=== PATIENT | male | born 1995 | race Hispanic/Latino ===

== ENCOUNTER 2017-03-17 16:07 | Inpatient (IN) | payer MEDICARE, MEDICAID ==
[2017-03-17] MEDS ORDERED: Ondansetron HCl/PF 4 MG/2 ML Vial ONE ×2 (16:45→17:32)
[2017-03-17 17:01] LABS: Lactic Acid - Sepsis 9.1 mmol/L (0.5-2.2)
--- NOTE | 2017-03-17 17:22 | CT ---
HISTORY: Trauma, found shaking. NONCONTRAST ENHANCED CT IMAGES OF THE BRAIN 03/17/[address] images of the brain demonstrates small areas of subarachnoid hemorrhage along the subarachnoid space inferior and slightly anterior to the right and left frontal lobes. There may also be a small amount of hemorrhage along the anterior aspect of the right middle cranial fossa. Th is may be subarachnoid or may be subdural. Correlate with followup CT. There is also a nondisplaced f racture through the anterior aspect of the frontal bone extending through the anterior and posterior tables of the skull. There is also a nondisplaced left occipital bone fracture. IMPRESSION: 1. Right frontal and left occipital skull fractures. 2. Subarachnoid blood inferior to both frontal lobes. 3. Possible right middle cranial fossa area of hemorrhage which may represent subarachnoid versu s subdural blood in the right middle cranial fossa. Findings called to Dr. Roy at 4:49 p.m. on 03/17/17. Code CR POS: [facility]
--- NOTE | 2017-03-17 17:24 | CT ---
CT CERVICAL SPINE 03/17/17 HISTORY: Fall and seizure. Axial images are obtained with coronal and sagittal reconstructions. Motion artifact is seen in the images as the CT scanner was passing through the C2 level. No evidence of fractures, subluxations, or bony lesions seen. No evidence of subluxation seen. The ne ural foramen are patent. IMPRESSION: Normal CT cervical spine. POS: [facility]
[2017-03-17 17:25] LABS: Hematocrit 49.7 % (42.0-52.0); Mean Platelet Volume 8.6 fL (7.4-10.4); Red Blood Cell (RBC) Count 5.46 mill/uL (4.70-6.10); White Blood Cell (WBC) Count 13.5 thou/uL (4.8-10.8)
[2017-03-17 17:29] LABS: ALT (SGPT) 28 U/L (8-55); AST (SGOT) 23 U/L (5-34); Alkaline Phosphatase 103 U/L (40-150); Anion Gap 20 mmol/L (10-20); BUN (Urea Nitrogen) 10 mg/dL (8.9-20.6); Bilirubin, Total 0.8 mg/dL (0.2-1.2); Calc. Creatinine Clearance 0 mL/min (70-130); Calcium 9.9 mg/dL (7.8-10.44); Carbon Dioxide 17 mmol/L (22-29); Chloride 103 mmol/L (98-107); Estimated GFR-MDRD Greater than 90; Globulin 3.5 g/dL (2.4-3.5); Protein, Total 8.3 g/dL (6.0-8.3)
--- NOTE | 2017-03-17 17:50 | RAD ---
PORTABLE CHEST 03/17/17 HISTORY: Seizure. Lung marinelli are clear. Heart and mediastinum appear normal. Osseous structures appear intact. IMPRESSION: No acute finding. POS: [facility]
[2017-03-17 17:53] LABS: Band 2 % (5-11); Neutrophil 26 % (42-75); Reactive Lymphocytes 14 % (0-10)
[2017-03-17] MEDS ORDERED: levETIRAcetam In NaCl (Iso-Os) 1,000 MG in Premix Bag 1 BAG IVPB SCH ×2 (18:15)
[2017-03-17 18:36] LABS: Acetaminophen Less than 6.0 mcg/mL (10.0-30.0); Salicylate Less than 8.0 mg/dL (15.0-30.0)
[2017-03-17] MEDS ORDERED: cloNIDine 0.1 MG TAB PO PRN (19:02)
[2017-03-17] MEDS ORDERED: Ondansetron HCl/PF 4 MG/2 ML Vial IVP PRN ×2 (19:02→22:34)
[2017-03-17] MEDS ORDERED: hydrALAZINE 20 MG/ML VIAL SLOW IVP PRN (19:02)
[2017-03-17] MEDS ORDERED: Acetaminophen 325 MG TAB PO PRN (19:02)
[2017-03-17] MEDS ORDERED: Mag-Al 1200 mg/1200 mg/30 ML UDCUP PO PRN (19:02)
[2017-03-17] MEDS ORDERED: Loratadine 10 MG TAB PO PRN (19:02)
[2017-03-17] MEDS ORDERED: Calcium Carbonate 500 MG ChewTAB PO PRN (19:02)
[2017-03-17] MEDS ORDERED: Senokot 8.6 MG TAB PO PRN (19:02)
[2017-03-17] MEDS ORDERED: Acetaminophen 650 MG Suppository PR PRN (19:02)
[2017-03-17] MEDS ORDERED: traMADol HCl 50 MG TAB PO PRN (19:02)
[2017-03-17] MEDS ORDERED: Bisacodyl 5 MG TAB PO PRN (19:02)
[2017-03-17] MEDS ORDERED: Diabetic Tussin 200 MG/10 ML UDCUP PO PRN (19:02)
[2017-03-17] MEDS ORDERED: Benzonatate 100 MG CAP PO PRN (19:02)
[2017-03-17] MEDS ORDERED: Nitroglycerin 0.4 MG TAB (25 Tab Bottle) SL PRN (19:02)
--- NOTE | 2017-03-17 21:24 | PRG ---
DATE OF SERVICE: 03/17/2017 ADDENDUM: Please see jony Leigha Chaudhary's history and physical; this is an addendum to that. Mr. Rizo has seen and examined. He answers questions appropriately. His vital signs have been stable. He has been neurologically intact since presentation. Found to have, after a new seizure an d fall, skull fracture, subarachnoid hemorrhage. Neurosurgery has been consulted and has seen him. He is going to be monitored in the IMCU or CCU tonight.
[2017-03-17] MEDS: Famotidine/PF 20 mg/2ml Vial SLOW IVP SCH (21:53)
[2017-03-17 21:57] VITALS: BMI 29.8
[2017-03-17] MEDS ORDERED: Dextrose 50% Abboject 50 ML SYRINGE SLOW IVP PRN (22:34)
[2017-03-17] MEDS ORDERED: Dextrose 5% in Water 1,000 ML IV PRN (22:34)
[2017-03-17] MEDS ORDERED: Promethazine HCl 25 MG/ML VIAL IM PRN (22:34)
[2017-03-17] MEDS ORDERED: Ondansetron ODT 4 MG TAB PO PRN (22:34)
[2017-03-17] MEDS: Sodium Chloride 0.9% 1,000 ML IV SCH (22:48)
--- NOTE | 2017-03-17 23:20 | CON ---
DATE OF CONSULTATION: 03/17/2017 HISTORY OF PRESENT ILLNESS: Mr. Rizo is a 21-year-old male who I saw in the Emergency Departmen t at [facility] after falling at home and hitting his head. Mr. Rizo has mental retard ation at baseline and he answers yes to all my questions asked. Family is at bedside and said this i s baseline neuro status. Skin inspection find abrasions to the right hand, back of the head and mult iple abrasions noted from the fall. Per family, the patient had new onset seizure and his eyes waldemar d back and he fell and hit his head. He was found outside, shaking. EMS reported that the patient h ad been vomiting. On arrival to the emergency department, Mr. Rizo had a CT scan of the head th at showed nondisplaced right frontal and left occipital fracture and frontal subarachnoid hemorrhage. Neurosurgery was consulted for these findings. ALLERGIES: No known drug allergies. CURRENT MEDICATIONS: Unable to be obtained at this time. Family will bring a list from home. PAST MEDICAL HISTORY: Includes history of mental retardation. MALE SURGICAL HISTORY: No surgical history. PSYCHIATRIC HISTORY: Mental retardation at baseline. SOCIAL HISTORY: The patient denies alcohol, denies drug use. He has no smoking history. REVIEW OF SYSTEMS: The patient reports vomiting and nausea, reports fall. Family reports no history of seizures; however, there was a new onset seizure. A 10-point review of systems was completed and is otherwise negative unless stated in the above HPI. PHYSICAL EXAMINATION: VITAL SIGNS: Temperature 99.7, pulse 141, respirations 18, O2 sats 95% on room air, blood pressure i s 150/102 CONSTITUTIONAL: Vital signs reviewed. The patient appears somewhat nauseous, but appears in no acut e distress. HEENT: Includes findings of a large abrasion, hematoma to the posterior occiput, normocephalic. Eye s: Pupils are equal and reactive to light. Extraocular muscles are intact. Sclerae is white, nonic teric. There is no nystagmus. NECK: The patient has a supple neck. Normal range of motion. Trachea is midline. No meningeal sig ns. No cervical tenderness along with palpation on the cervical spine. RESPIRATORY: The patient has bilateral symmetric chest rise. Appears to be no shortness of breath. CARDIOVASCULAR: The patient has regular rate and rhythm, normal S1, S2 heart sounds, no distal cyano sis or clubbing noted. BACK: Include findings of normal inspection. Normal range of motion. No tenderness. No step-off d eformities. EXTREMITIES: Upper extremity exam include findings of small abrasions to the right hand. Normal ran ge of motion, normal strength and no dermatomal sensory loss in the upper extremities. Left lower ex tremity: Sensation is intact. Strength is normal bilaterally in the lower extremities, posterior ti bial pulses are normal. He has no dermatomal sensory loss in the lower extremities. NEUROLOGIC: Cranial nerves II-XII are grossly intact. Speech is normal, answering yes to all questi ons, which is at baseline mentally, moving all extremities and protecting his airway. PSYCHIATRIC: Normal exam at baseline for patient with mental retardation. ASSESSMENT: Mr. Rizo is a 21-year-old male who presents after a new onset seizure and fall, to hit his head. He was found to have a left occipital skull fracture, right occipital skull fracture a nd subarachnoid hemorrhage in the frontal region. PLAN: Trauma services will admit the patient to the ICU. We will do neuro checks q.2 hours overnigh t. We will get an MRI tomorrow morning to assess seizure issues. We will add Zofran for his nausea and add phenytoin or Keppra, levetiracetam for new onset seizure. He will likely need to be on levet iracetam for at least 10 days. If there was any further questions, please feel free to contact Neurosurgery.
--- NOTE | 2017-03-17 23:43 | HP ---
DATE OF ADMISSION: 03/17/2017 ATTENDING PHYSICIAN: Ron Ivey M.D. TRAUMA ACTIVATION: Not applicable. HISTORY OF PRESENT ILLNESS: This is a 21-year-old gentleman who presented to [facility], status p ost seizure followed by fall. Per patient's brother who is at bedside with his mother, the patient w as standing outside with his brother, he became unresponsive and fell to the ground shaking. There w as reportedly loss of bladder function. Since that time, he has had multiple episodes of vomiting. He has received 4 mg of Zofran while in the emergency room. He was evaluated and found to have subar achnoid hemorrhage and skull fracture. Neurosurgery was notified and Trauma Services was asked to ad jayshree. The patient has a known history of mental retardation. He is mostly nonverbal, but answers yes to almost any question asked. Per family at bedside, this is his baseline. Per family, the patient has never had a seizure prior to this. He has been normal with the exception of approximately 1 wee k of diarrhea. Denies fevers, chills, nausea or vomiting, chest pain, shortness of breath, abdominal pain, hematochezia, melena, complaints of dysuria. PAST MEDICAL HISTORY: Significant for autism and mental retardation. HOME MEDICATIONS: Include mirtazapine 30 mg, trazodone 50 mg 1-2 at bedtime p.o. and Strattera 5 mg p.o. daily. SURGICAL HISTORY: None per brother. SOCIAL HISTORY: Lives at home with his mother and brother. Family denies alcohol, tobacco, or illic it drug use. FAMILY HISTORY: Significant for mother with diabetes and hypertension. REVIEW OF SYSTEMS: Negative except as indicated in the HPI. PHYSICAL EXAMINATION: VITAL SIGNS: Blood pressure 125/84, pulse 94, respiration 20, O2 sat 100% on room air. GENERAL: Well-developed male, actively vomiting, sitting in bed. HEENT: Head, there is a scalp abrasion. Eyes, pupils are PERRL. Extraocular movements are intact. Mouth, patient's tongue with erythema and blood. NECK: Supple, trachea is midline. No obvious tenderness to palpation. CHEST: Atraumatic. No tenderness to palpation. LUNGS: Clear to auscultation bilaterally. CARDIOVASCULAR: Regular rate and rhythm. GASTROINTESTINAL: Abdomen is soft, nontender, nondistended. Bowel sounds are positive. MUSCULOSKELETAL: Moves all extremities x4. There are abrasions on the right hand. NEUROLOGIC: No focal deficit noted at baseline per family. LABORATORY DATA: WBC 13.5, hemoglobin 16.5, hematocrit 49.7, platelet count 287,000. Sodium 136, po tassium 3.7, chloride 103, carbon dioxide 17, anion gap 20, BUN 10, creatinine 0.89, glucose 105, lac tic acid 9.1. AST and ALT within normal limits. Prolactin 15.6. Toxicology unremarkable. RADIOGRAPHIC FINDINGS: Chest x-ray without obvious infiltrate or acute traumatic injury. CT of the C-spine was read as negative for acute fracture or dislocation. CT of the brain was significant for right frontal and left occipital skull fracture, subarachnoid blood inferior to both frontal lobes, p ossible right middle cranial fossa hemorrhage per Radiology. ASSESSMENT: 1. Status post fall secondary to seizure. 2. New onset seizure. 3. History of mental retardation. 4. Traumatic subarachnoid hemorrhage. 5. Frontal and occipital skull fracture. 6. Leukocytosis. 7. Elevated lactic acid. PLAN: Admit to Trauma Services. I have discussed the case with Neurosurgery who was evaluated the patient at bedside. Frequent neuro checks. MRI in the a.m. per Neurosurgery. Hospital medicine consult for new onset seizures and medical management. We will check stool studies given the patient's recent o nset of diarrhea. The patient should be n.p.o., given active vomiting. Gastritis and DVT prophylaxi s as appropriate. Patient has been discussed with trauma attending, who will see and evaluate the pa yeimy.
--- NOTE | 2017-03-18 00:28 | CON ---
DATE OF ADMISSION: 03/17/2017 DATE OF CONSULTATION: 03/17/2017 PRIMARY CARE PHYSICIAN: Blas Monroy M.D. CHIEF COMPLAINT: Seizures. REASON FOR CONSULTATION: Medical management. ADMITTING PHYSICIAN: Dr. Ron Ivey and Trauma Services. HISTORY OF PRESENTING ILLNESS: Mr. Rizo is a 21-year-old male with past medical history of ment al retardation, who was brought in by family after witnessed seizure and fall. History is mainly obt ained by the patient's brother present in the room. The patient is rather encephalopathic and also h as baseline mental retardation and is unable to provide any history. Case has been discussed with [facility] trauma service physician operating room assistant. Electronic medical records have been repaired. According to the patient's brother, he has been in his usual health today. At his baseline, he is ab le to recognize the family members and speaks some words. Today when he was standing up, all of a rodriguez dden he started to have all over body shaking and his eyes rolled back to his head and he fell down. The patient's brother did not notice any urinary or fecal incontinence or any tongue biting. His br other denies history of any seizures or similar episodes in the past. He denies any recent illnesses for the patient either. He has not noticed any changes in patient's behavior recently. He has not been having any fevers, cough, diarrhea as far as the family could tell. The patient's brother does report that he has had some loose stools lately without any vomiting, but has been feeling nauseous a ll day today. Upon presentation to the emergency room, his blood pressure was 150/102 with a pulse of 141. He came in as a trauma alert and underwent a CT scan of the head. It showed right frontal and left occipita l skull fractures and subarachnoid blood inferior to both frontal lobes and CT scan of the cervical s pine did not show any fractures. His chest x-ray is rather unremarkable. His blood work includes a normal prolactin. His lactic acid was elevated at 9.1 upon presentation. He does have evidence of e levated WBCs at 13.5 with relative lymphocytosis. His serum alcohol, salicylate and acetaminophen we re unremarkable. He is now being admitted to Trauma Services and Neurosurgery has been consulted for the management of subarachnoid bleed and Internal Medicine team has been consulted for medical management. The patien t has received 1000 mg of IV Keppra in the ER. PAST MEDICAL HISTORY: Mental retardation. PAST SURGICAL HISTORY: None. SOCIAL HISTORY: The patient lives with his family and has no history of drug, tobacco or alcohol abu se. FAMILY HISTORY: No significant family history of cerebral aneurysms or CVAs. ALLERGIES: No known medication allergies. CURRENT MEDICATIONS: Include mirtazapine 30 mg daily, trazodone 50 mg 1-2 tablets daily and Stratter a unknown dose. REVIEW OF SYSTEMS: I am unable to obtain any review of system from the patient who was rather somnol ent at this time. LABORATORY DATA: As above. CBC shows WBCs at 13.5 with 26% neutrophils, but 14% lymphocytes. Serum chemistries show bicarbonate at 17, lactic acid initially 9.1 with repeat lactic acid at 2.4. Prola ctin of 15.6 Chest x-ray by my review has no evidence of pleural effusion, edema or infiltrate. CT scan and cervi lissa spinal CT as per HPI. A 12-lead EKG by my review shows sinus tachycardia without any acute ST or T-wave changes. PHYSICAL EXAMINATION: VITAL SIGNS: His temperature is 97.9, heart rate 82, saturating 100% on room air, respirations 16, b lood pressure 127/72. GENERAL: He is very sleepy, but he also appears restless. He was complaining of nausea to the ER nu rses earlier. HEENT: Large abrasion and hematoma in the occipital region. Otherwise, normocephalic. Pupils are e qually reactive to light. No nystagmus. Mucous membrane appears moist. NECK: Supple without any lymphadenopathy, JVD or bruit. CHEST: Clear to auscultation without any wheezing, rales or rhonchi. Rate and rhythm is regular wit hout any murmur, rubs or gallops. ABDOMEN: Soft, nontender, nondistended with positive bowel sounds. EXTREMITIES: Showed small abrasion of the right hand. Otherwise, he is moving all 4 extremities. NEUROLOGIC: He answers yes to all the questions with difficulty. He is sleepy, but arousable. He i s moving all 4 extremities and no respiratory distress is noticed. PSYCHIATRIC: Appears normal affect. SKIN: Free of any rashes or bruises. Feels warm and dry to touch. IMPRESSION AND PLAN: 1. Seizures. It is unclear if he has seizures because of subarachnoid hemorrhage or this is a new o nset of seizure disorder. At this time, he has received a dose of IV Keppra in the emergency room. We will continue the IV Keppra at 500 IV b.i.d. dose for now. He needs to have a neurological consul tation as antiepileptics are not advisable in case of the seizures that because of subarachnoid bleed . He is being admitted to the Critical Care Unit and seizure precautions have been instituted. Ever y one hour neuro checks will be done at this point. 2. Subarachnoid hemorrhage. Neurosurgical team has been consulted and the management will be deferr ed to them. At this time, the patient is hemodynamically stable with intact neurological status as w ell. Every one hour neuro checks have been instituted. He may need a CT angio to rule out aneurysma l bleed. Blood pressure has been in the normal range. We will avoid significant lowering of the blo od pressure to continue to maintain cerebral perfusion pressure. Further management will be deferred to the Neurosurgical team. 3. Skull fractures. Management as per the primary team. 4. Add deep venous thrombosis and gastrointestinal prophylaxis. We will add IV Pepcid b.i.d. and de ep venous thrombosis prophylaxis in the form of only sequential compression devices. We will not sta rt him on any pharmacological prophylaxis given the subarachnoid hemorrhage. 5. Mental retardation. We will continue symptomatic and supportive care. 6. Code status: FULL CODE as per the family. 7. The patient will be n.p.o. and IV fluids have been started. 8. Recent diarrheal illness. We will check stool for ova and parasite and Clostridium difficile. 9. Check urinalysis. 10. Monitor electrolytes and replace as needed. DISPOSITION: Thank you for letting us to participate in the care of this patient. Internal Medicine team will follow along.
[2017-03-18 01:42] LABS: Bilirubin Negative (Negative); Blood, Urine Negative (Negative); Glucose, Urine (Dipstick) Negative (Negative); Ketone, Urine 15 mg/dL (Negative); Nitrite Negative (Negative); Protein, Urine (Dipstick) 100 mg/dL (Neg-Trace); Urobilinogen 0.2 mg/dL (0.2-1.0)
[2017-03-18 04:56] LABS: #Lymphocytes 1.4 thou/uL (1.20-3.40); #Monocytes 0.9 thou/uL (0.11-0.59); #Neutrophils 16.1 thou/uL (1.40-6.50); %Basophils 0.2 % (0.0-1.0); %Eosinophils 0.1 % (0.0-10.0); %Lymphocytes 7.7 % (21.0-51.0); Hematocrit 44.5 % (42.0-52.0); Mean Platelet Volume 8.6 fL (7.4-10.4); Red Blood Cell (RBC) Count 4.86 mill/uL (4.70-6.10); White Blood Cell (WBC) Count 18.4 thou/uL (4.8-10.8)
[2017-03-18 05:06] LABS: Anion Gap 16 mmol/L (10-20); BUN (Urea Nitrogen) 9 mg/dL (8.9-20.6); Calc. Creatinine Clearance 210 mL/min (70-130); Calcium 9.1 mg/dL (7.8-10.44); Carbon Dioxide 21 mmol/L (22-29); Chloride 102 mmol/L (98-107); Estimated GFR-MDRD Greater than 90; Magnesium 2.2 mg/dL (1.6-2.6); Phosphorus 3.2 mg/dL (2.3-4.7)
[2017-03-18] MEDS: Sodium Chloride 0.9% 1,000 ML IV SCH (07:00)
--- NOTE | 2017-03-18 07:33 | PRG ---
DATE OF SERVICE: 03/18/2017 I personally interviewed and examined the patient, reviewed imaging, and agree with documentation of Jamie Merchant PA-C, dated 03/17/2017. Briefly, Leland Rizo is a 21-year-old, cognitively impaired, young man, who fell yesterday. His mother reports that he began to have tonic movement of the eyes upwards and then fell. He had bilate ral tonic-clonic activity after striking his head. He was brought to the emergency department where CT examination of the head revealed occipital and frontal fractures with some mild diastasis of the c oronal suture, perhaps, and some inferior frontal traumatic subarachnoid hemorrhage and subdural katelyn maida along the falx inferiorly. Sallie ceased his seizure activity, returned to his neurological baseline. At baseline, he is awake, he is alert, he can feed himself. He says yes to almost every c omment or questions. I am seeing Mr. Rizo this morning. His vitals have been stable. His neurological examination h as remained stable overnight. He is awake and alert. He follows commands. He moves his arms and le gs well. He answers yes to everything I said him. My plan for Mr. Rizo is to evaluate this seizure activity. His mother reports no previous seizu res. I would like to get an MRI scan of the brain and see if this is lesional epilepsy. This may re quire anesthesia, however. I will speak with the family later today when they arrive about the use o f general anesthesia for MR diagnosis of seizure etiology. They would like to defer that until [facility] appointment. I think that is reasonable as well. A followup CT scan then will be obtained to en sure that the frontal contusions have not blossomed significantly.
[2017-03-18] MEDS: Famotidine/PF 20 mg/2ml Vial SLOW IVP SCH ×2 (09:55→20:36)
--- NOTE | 2017-03-18 10:50 | CON ---
NEUROLOGY CONSULTATION NOTE DATE OF CONSULTATION: 03/18/2017 CONSULTING PHYSICIAN: Hospitalist Service. IMPRESSION: Seizure with secondary head injury and subarachnoid bleed. PLAN: 1. Continue Keppra 500 mg twice a day. 2. Office followup. HISTORY OF PRESENT ILLNESS: Mr. Rizo is a 21-year-old man who was brought into the emergency ro following a seizure and a fall. He reportedly fell and struck his head on the floor. He had mult iple episodes of vomiting, received some Zofran in the emergency room. A CT scan of the brain showed some basilar subarachnoid hemorrhage and evidence of a skull fracture. Neurosurgery was consulted. The patient has a history of mental retardation, but no history of seizure activity in the past. Th e family was at the bedside in the emergency room. Reportedly, he was back to his baseline level of responsiveness. Since admission to the ICU, he has not had any further vomiting and has not really b een appearing to be uncomfortable or complaining of any pain. His lab work was unremarkable. PAST MEDICAL HISTORY: Autism, with significant mental retardation. MEDICATIONS: Trazodone, mirtazapine and Strattera. ALLERGIES: None. SOCIAL HISTORY: No tobacco or alcohol use. FAMILY HISTORY: Hypertension and diabetes. REVIEW OF SYSTEMS: Not obtainable. PHYSICAL EXAMINATION: VITAL SIGNS: Blood pressure 121/68, pulse 87, respirations 17 and saturation 95%. HEENT: Cranium was not obviously tender in any location to palpation. Pupils were equal and reactiv e. Conjunctivae clear. Oropharynx clear. NECK: Supple. No lymphadenopathy noted. EXTREMITIES: No cyanosis noted. NEUROLOGIC: He was alert and cooperative. He was minimally communicative, but did follow commands r easonably well. Cranial nerves were intact. Motor exam showed symmetric strength. Cerebellar testi ng showed normal finger to nose and rapid alternating movements. Sensation was symmetric to light to uch. Gait was not tested. No abnormal movements were seen. LABORATORY STUDIES: Reviewed. IMAGING DATA: CT scan of the brain was reviewed. CT of the cervical spine was negative for any frac ture. ASSESSMENT: A 21-year-old man with mental retardation who suffered a seizure and a traumatic subarac hnoid hemorrhage. I agree with continuing Keppra. I will be happy to follow up with him as an outpa tient.
--- NOTE | 2017-03-18 13:33 | CT ---
BRAIN CT WITHOUT IV CONTRAST: History: 21-year-old male with follow up frontal hemorrhage. Comparison: 03-17-17 FINDINGS: There is some persistent abnormal patchy low attenuation changes in the floor of the anterior cranial fossa, worse on the left side, evidence for some evolving parenchymal contusion. The subarachnoid ap pearing hemorrhagic changes and small right temporal subdural hemorrhagic changes appear to have reso lved. No evidence for new hemorrhage. No mass effect or midline shift. There is again noted to be a v ertically oriented fracture through the anterior frontal bone just to the right of midline extending from the frontal sinus up to the frontal suture. Again noted is a vertically oriented left occipital skull fracture. IMPRESSION: Right frontal and left occipital skull fractures. Resolution of the previously noted subarachnoid/sma ll subdural hemorrhagic changes with some developing abnormal low attenuation changes in the left ant erior frontal lobe and floor of the anterior cranial fossa, evidence for some evolving brain contusio n changes. POS: [facility]
--- NOTE | 2017-03-18 13:56 | PRG ---
DATE OF SERVICE: 03/18/2017 SUBJECTIVE: Mr. Rizo is a 21-year-old male who fell yesterday with new onset of seizure. He bullock s a small frontal traumatic subarachnoid hemorrhage. LABORATORY DATA: This morning, white blood cell count shows 18.4. His sodium is 135, carbon dioxide of 21, and glucose of 121. PHYSICAL EXAMINATION: GENERAL APPEARANCE: He is cognitively impaired at baseline and he responds to my questions as he wou ld at baseline. HEENT: This morning, his pupils are equal and reactive to light. Extraocular muscles are intact. Gema braxton is white, nonicteric. NEUROLOGIC: Cranial nerves are intact. We are going to hold off on the MRI scan to investigate the reason for new seizure activity. PLAN: There was a consult for Neurology. They suggested to continue Keppra 500 mg p.o. b.i.d. Neur ology will follow up outpatient. We will also follow up with CT scan in the office that will be obta ined to ensure that the frontal contusions have not blossomed significantly. If there are any furthe r questions, please feel free to contact Neurosurgery.
--- NOTE | 2017-03-18 14:56 | PDOC.PN ---
- Subjective Encounter Start Date: 03/18/17 Encounter Start Time: 09:20 Pt seen for followup re: seizure. Pt grunting in response to questions, unable to complete ROS. - Objective Resuscitation Status: Resuscitation Status FULL:Full Resuscitation MAR Reviewed: Yes Vital Signs & Weight: Vital Signs (12 hours) Temp Pulse Resp BP Pulse Ox 03/18/17 14:01 98.8 F 69 16 98 03/18/17 12:55 98.8 F 69 16 138/86 98 03/18/17 12:00 98.3 F 03/18/17 08:00 98.4 F 03/18/17 07:46 98.6 F 72 15 96 03/18/17 04:00 98.6 F Most Recent Monitor Data Heart Rate from ECG 65 NIBP 123/67 NIBP BP-Mean 97 Respiration from ECG 16 SpO2 94 I&O: 03/17/17 03/18/17 03/19/17 06:59 06:59 06:59 Intake Total 803 Output Total 700 450 Balance 103 -450 Result Diagrams: 03/18/17 03:44 03/18/17 03:44 EKG Reviewed by me: Yes (Tele: NSR) Phys Exam - Physical Examination Constitutional: NAD HEENT: moist MMs Neck: supple Respiratory: clear to auscultation bilateral Cardiovascular: RRR Gastrointestinal: soft Neurological: moves all 4 limbs Psychiatric: normal affect Skin: no rash Dx/Plan (1) Seizure Code(s): R56.9 - UNSPECIFIED CONVULSIONS Status: Acute (2) Subarachnoid hemorrhage Code(s): I60.9 - NONTRAUMATIC SUBARACHNOID HEMORRHAGE, UNSPECIFIED Status: Acute (3) Skull fractures Code(s): S02.91XA - UNSP FRACTURE OF SKULL, INIT ENCNTR FOR CLOSED FRACTURE Status: Acute - Plan PT/OT, DVT proph w/SCDs * . Continue Keppra, await neurology consult. Follow sodium level. Review of Systems - Medications/Allergies Allergies/Adverse Reactions: Allergies Allergy/AdvReac Type Severity Reaction Status Date / Time No Known Allergies Allergy Unverified 03/17/17 17:30 Medications: Current Medications Acetaminophen (Tylenol) 650 mg PO Q4H PRN PRN Reason: Headache/Fever or Mild Pain Acetaminophen (Tylenol) 650 mg NM Q4H PRN PRN Reason: Headache/Fever or Mild Pain Al Hydroxide/Mg Hydroxide (Maalox) 15 ml PO Q4H PRN PRN Reason: Heartburn or Indigestion Albuterol/Ipratropium (Duoneb) 3 ml NEB Q4H PRN PRN Reason: Wheezing Benzonatate (Tessalon) 100 mg PO Q4H PRN PRN Reason: Cough Bisacodyl (Dulcolax) 10 mg PO DAILYPRN PRN PRN Reason: Constipation Calcium Carbonate (Tums) 1,000 mg PO Q4H PRN PRN Reason: Heartburn or Indigestion Clonidine (Catapres) 0.1 mg PO Q4H PRN PRN Reason: Systolic BP > 160 Dextrose/Water (Dextrose 50%) 25 gm SLOW IVP PRN PRN PRN Reason: Hypoglycemia Famotidine (Pepcid) 20 mg SLOW IVP BID [facility] Last Admin: 03/18/17 09:55 Dose: 20 mg Glucagon (Glucagon) 1 mg IM PRN PRN PRN Reason: Hypoglycemia Guaifenesin (Robitussin Sf) 200 mg PO Q4H PRN PRN Reason: Cough Hydralazine HCl (Apresoline) 10 mg SLOW IVP Q4H PRN PRN Reason: Systolic BP > 170 Dextrose/Water (D5w) 1,000 mls @ 0 mls/hr IV .Q0M PRN; As Directed PRN Reason: Hypoglycemia Levetiracetam (Keppra) 500 mg PO BID AMINAH Loratadine (Claritin) 10 mg PO DAILYPRN PRN PRN Reason: Sinus Symptoms Nitroglycerin (Nitrostat) 0.4 mg SL Q5MIN PRN PRN Reason: Chest Pain Ondansetron HCl (Zofran Odt) 4 mg PO Q6H PRN PRN Reason: Nausea/Vomiting Ondansetron HCl (Zofran) 4 mg IVP Q6H PRN PRN Reason: Nausea Last Admin: 03/18/17 11:04 Dose: 4 mg Promethazine HCl (Phenergan) 12.5 mg IM Q4H PRN PRN Reason: Nausea Senna (Senokot) 2 tab PO HSPRN PRN PRN Reason: Constipation Sodium Chloride (Flush - Normal Saline) 10 ml IVF Q12HR AMINAH Last Admin: 03/18/17 10:24 Dose: 10 ml Sodium Chloride (Flush - Normal Saline) 10 ml IVF PRN PRN PRN Reason: Saline Flush Last Admin: 03/18/17 11:04 Dose: 10 ml Tramadol HCl (Ultram) 50 mg PO Q4H PRN PRN Reason: Moderate Pain (4-6)
--- NOTE | 2017-03-18 17:53 | PRG ---
DATE OF SERVICE: 03/18/2017 SUBJECTIVE: Prosper Rizo suffered a fall resulting in subarachnoid hemorrhage, skull fracture. Apparently, he had a seizure prior. He remains baseline neurological status. OBJECTIVE: VITAL SIGNS: Temperature 98.8 degrees, 69, 130/86. He does follow commands. LUNGS: Clear to auscultation. CARDIAC: Regular rate and rhythm without murmur or gallop. ABDOMEN: Soft, nontender. LABORATORY DATA: White count 18, hemoglobin 15. Basic metabolic profile stable. Sodium 135. Repea t brain CAT scan today is unremarkable without interval change, noting right frontal and left occipit al skull fractures, resolution of subarachnoid small subdural hemorrhagic changes. Dr. Mehta, Neurology, is seen in consultation and Dr. Mehta recommends continuing Keppra and we w ill see him as an outpatient. Patient is ready to be discharged home. We will plan discharge home t omorrow.
[2017-03-18] MEDS: levETIRAcetam 500 MG TAB PO SCH (20:36)
[2017-03-19 05:57] LABS: Anion Gap 13 mmol/L (10-20); BUN (Urea Nitrogen) 9 mg/dL (8.9-20.6); Calc. Creatinine Clearance 222 mL/min (70-130); Calcium 9.4 mg/dL (7.8-10.44); Carbon Dioxide 24 mmol/L (22-29); Chloride 104 mmol/L (98-107); Estimated GFR-MDRD Greater than 90
--- NOTE | 2017-03-19 06:58 | PRG ---
DATE OF SERVICE: 03/19/2017 Neurosurgery progress note SUBJECTIVE: Mr. Rizo is at the beginning of his third hospital day with us. He had a seizure, fell back and struck his head and had a skull fracture and some inferior frontal contusions. For new onset seizure, an MRI scan was planned for yesterday, but the decision was made by the family to fol low up the seizure disorder as an outpatient. He has been put on antiepileptic drugs. His CT scan y esterday did not show significant blossoming mostly left inferior frontal contusion. He was moved ou t of the ICU. Overnight, the vitals have been stable. This morning, Mr. Rizo is more awake. He answers yes t o almost all of the questions I asked him. He moves all extremities to command. I do not find any n ew neurological deficit. According to the family, he is at his neurological baseline. It will be ac ceptable to discharge him and follow up with Neurology for his new onset seizures.
[2017-03-19] MEDS: Famotidine/PF 20 mg/2ml Vial SLOW IVP SCH (09:13)
[2017-03-19] MEDS: levETIRAcetam 500 MG TAB PO SCH (09:14)
--- NOTE | 2017-03-19 10:53 | PDOC.PN ---
- Subjective Encounter Start Date: 03/19/17 Encounter Start Time: 10:52 Subjective: says "Yes" to all questions -: family not in room.discussed w nurse. -: walked in hallways by himself.no acute events - Objective Resuscitation Status: Resuscitation Status FULL:Full Resuscitation MAR Reviewed: Yes Vital Signs & Weight: Vital Signs (12 hours) Temp Pulse Resp BP Pulse Ox 03/19/17 08:00 98.6 F 78 16 03/19/17 07:31 98.6 F 78 16 132/81 93 L 03/19/17 04:05 98.7 F 72 16 133/75 98 03/19/17 00:15 99.0 F 79 16 122/66 96 Weight Weight 213 lb 14.4 oz Most Recent Monitor Data Heart Rate from ECG 65 NIBP 123/67 NIBP BP-Mean 97 Respiration from ECG 16 SpO2 94 I&O: 03/18/17 03/19/17 03/20/17 06:59 06:59 06:59 Intake Total 803 770 300 Output Total 700 1600 Balance 103 -830 300 Result Diagrams: 03/18/17 03:44 03/19/17 05:01 Phys Exam - Physical Examination Constitutional: NAD HEENT: PERRLA, moist MMs, sclera anicteric, oral pharynx no lesions Neck: no nodes, no JVD, supple, full ROM Respiratory: no wheezing, no rales, no rhonchi, clear to auscultation bilateral Cardiovascular: RRR, no significant murmur Gastrointestinal: soft, non-tender, no distention, positive bowel sounds Musculoskeletal: no edema, pulses present Neurological: moves all 4 limbs Psychiatric: normal affect Skin: no rash Dx/Plan (1) Seizure Code(s): R56.9 - UNSPECIFIED CONVULSIONS Status: Acute (2) Skull fractures Code(s): S02.91XA - UNSP FRACTURE OF SKULL, INIT ENCNTR FOR CLOSED FRACTURE Status: Acute (3) Subarachnoid hemorrhage Code(s): I60.9 - NONTRAUMATIC SUBARACHNOID HEMORRHAGE, UNSPECIFIED Status: Acute (4) Mental retardation Code(s): F79 - UNSPECIFIED INTELLECTUAL DISABILITIES Status: Chronic - Plan DVT proph w/SCDs cont keppra BID.OP neurology f/u. -: discharged by primary team. -: Ok from IM stand point. * . Review of Systems - Review of Systems Other: unobtainable due to MR - Medications/Allergies Allergies/Adverse Reactions: Allergies Allergy/AdvReac Type Severity Reaction Status Date / Time No Known Allergies Allergy Unverified 03/17/17 17:30 Medications: Current Medications Acetaminophen (Tylenol) 650 mg PO Q4H PRN PRN Reason: Headache/Fever or Mild Pain Last Admin: 03/18/17 20:37 Dose: 650 mg Acetaminophen (Tylenol) 650 mg PA Q4H PRN PRN Reason: Headache/Fever or Mild Pain Al Hydroxide/Mg Hydroxide (Maalox) 15 ml PO Q4H PRN PRN Reason: Heartburn or Indigestion Albuterol/Ipratropium (Duoneb) 3 ml NEB Q4H PRN PRN Reason: Wheezing Benzonatate (Tessalon) 100 mg PO Q4H PRN PRN Reason: Cough Bisacodyl (Dulcolax) 10 mg PO DAILYPRN PRN PRN Reason: Constipation Calcium Carbonate (Tums) 1,000 mg PO Q4H PRN PRN Reason: Heartburn or Indigestion Clonidine (Catapres) 0.1 mg PO Q4H PRN PRN Reason: Systolic BP > 160 Dextrose/Water (Dextrose 50%) 25 gm SLOW IVP PRN PRN PRN Reason: Hypoglycemia Famotidine (Pepcid) 20 mg SLOW IVP BID [facility] Last Admin: 03/19/17 09:13 Dose: 20 mg Glucagon (Glucagon) 1 mg IM PRN PRN PRN Reason: Hypoglycemia Guaifenesin (Robitussin Sf) 200 mg PO Q4H PRN PRN Reason: Cough Hydralazine HCl (Apresoline) 10 mg SLOW IVP Q4H PRN PRN Reason: Systolic BP > 170 Dextrose/Water (D5w) 1,000 mls @ 0 mls/hr IV .Q0M PRN; As Directed PRN Reason: Hypoglycemia Levetiracetam (Keppra) 500 mg PO BID [facility] Last Admin: 03/19/17 09:14 Dose: 500 mg Loratadine (Claritin) 10 mg PO DAILYPRN PRN PRN Reason: Sinus Symptoms Nitroglycerin (Nitrostat) 0.4 mg SL Q5MIN PRN PRN Reason: Chest Pain Ondansetron HCl (Zofran Odt) 4 mg PO Q6H PRN PRN Reason: Nausea/Vomiting Ondansetron HCl (Zofran) 4 mg IVP Q6H PRN PRN Reason: Nausea Last Admin: 03/18/17 11:04 Dose: 4 mg Promethazine HCl (Phenergan) 12.5 mg IM Q4H PRN PRN Reason: Nausea Senna (Senokot) 2 tab PO HSPRN PRN PRN Reason: Constipation Sodium Chloride (Flush - Normal Saline) 10 ml IVF Q12HR AMINAH Last Admin: 03/19/17 09:13 Dose: 10 ml Sodium Chloride (Flush - Normal Saline) 10 ml IVF PRN PRN PRN Reason: Saline Flush Last Admin: 03/18/17 11:04 Dose: 10 ml Tramadol HCl (Ultram) 50 mg PO Q4H PRN PRN Reason: Moderate Pain (4-6)
[2017-03-19 15:21] VITALS: BP 135/78; TEMP 98.9
--- NOTE | 2017-03-19 15:25 | DIS ---
DATE OF ADMISSION: 03/17/2017 DATE OF DISCHARGE: 03/19/2017 ADMISSION DIAGNOSES: 1. Status post seizure. 2. Fall secondary to above. 3. New onset seizure. 4. History of mental retardation/autism. 5. Traumatic subarachnoid hemorrhage. 6. Frontal and occipital skull fracture. 7. Leukocytosis. 8. Elevated lactic acid. DISCHARGE DIAGNOSES: 1. Status post seizure. 2. Fall secondary to above. 3. New onset seizure. 4. History of mental retardation/autism. 5. Traumatic subarachnoid hemorrhage. 6. Frontal and occipital skull fracture. 7. Leukocytosis, likely noninfectious. 8. Elevated lactic acid, resolved. CONSULTANTS: 1. [facility]. 2. Dr. Gaines, Neurosurgery. 3. Dr. Enrique Mehta, Neurology. PROCEDURES: None. HOSPITAL COURSE: Prosper Rizo is a 21-year-old gentleman, who presented to Psychiatric status post fall after seizure. This was a witnessed event by the patient's family. He does not have a his tory of seizures. He was evaluated in the emergency room and found to have the above injuries. Neur osurgery was notified. Neurology and Hospital Medicine were consulted for new onset seizure. Ilana werner's mental status improved throughout the duration of his hospitalization. An MRI was ordered for ev aluation of the brain, but family elected to follow up new seizures as an outpatient with Neurology, therefore, a CT scan was repeated, which was stable. Neurology and Neurosurgery both agreed that pat ient was stable for discharge on 03/19/2017. DISCHARGE DISPOSITION: Home. DISCHARGE CONDITION: Good. PHYSICAL EXAMINATION: VITAL SIGNS: Temperature 98.6, pulse 78, respirations 16, O2 sat 93-98% on room air, blood pressure 132/81. GENERAL: Well-developed male in no acute distress, resting in bed. PULMONARY: Normal work of breathing, symmetric rise. CARDIOVASCULAR: Regular rate and rhythm. GASTROINTESTINAL: Abdomen is soft, nontender, nondistended. MUSCULOSKELETAL: Moves all extremities x4. NEUROLOGIC: No focal deficit noted. The patient is awake and alert, answering yes to most questions , but denying pain and unable to give his name. LABORATORY FINDINGS: Sodium 137, potassium 3.7, chloride 104, carbon dioxide 24, BUN 9, creatinine 0 .71, glucose 103. RADIOGRAPHIC FINDINGS: CT of the brain 03/18/2017, was read by Radiology as resolution of previously noted subarachnoid and subdural hemorrhage with evidence of evolving brain contusions. The right fr ontal and left occipital skull fractures were noted. DISCHARGE INSTRUCTIONS: Discharge instructions were provided to the patient's family, who vocalized their understanding. All questions were answered prior to discharge. DISCHARGE MEDICATIONS: The patient may resume home medications. He was started on Keppra 500 mg b.i .d. per Neurology's recommendations. FOLLOWUP APPOINTMENTS: The patient is to follow up with Neurology as an outpatient. He should also follow up with Neurosurgery, Dr. Gaines's office. He does not need to follow up formally with [facility] and may call our office with any questions. This is merely a summary of the patient's hospitalization. For more in depth information, please see his medical record in its entirety.
== END 2017-03-19 18:19 | disposition home or self-care (01) | DRG 100 ==
LOC: ERS 16:07 → CCU 21:11 → 2SE 03-18 12:53
PROVIDERS: ADMIT Surgery; ATTEND Surgery
DX: R56.9 Unspecified convulsions (principal); S06.6X9A Traumatic subarachnoid hemorrhage with loss of consciousness of unspecified duration, initial encounter; E87.2 Acidosis; F84.0 Autistic disorder; D72.829 Elevated white blood cell count, unspecified; S60.511A Abrasion of right hand, initial encounter; S02.0XXA Fracture of vault of skull, initial encounter for closed fracture; S02.119A Unspecified fracture of occiput, initial encounter for closed fracture; F79 Unspecified intellectual disabilities; R19.7 Diarrhea, unspecified; Z83.3 Family history of diabetes mellitus; Z82.49 Family history of ischemic heart disease and other diseases of the circulatory system; W19.XXXA Unspecified fall, initial encounter
CPT/HCPCS: 36415; 36416; 70450; 71010; 72125; 80048; 80053; 80307; 81003; 81015; 83605; 83735; 84100; 84146; 85025; 93005; 96365; 96375; 96376; A4216; G0390; J1953; J2405; S0028

== ENCOUNTER 2017-04-10 10:16 | Day surgery (SDC) | payer MEDICARE, MEDICAID ==
[2017-04-09 08:54] VITALS: BMI 29.5
--- NOTE | 2017-04-10 13:09 | MRI ---
MRI BRAIN: Date: 04/10/17 COMPARISON: Previous CT from 03/18/17. TECHNIQUE: Multiplanar, multisequence pre and postcontrast enhanced MRI of brain obtained. FINDINGS: There is an area of encephalomalacia with resolving area of focal hemorrhage involving the inferomedi al aspect of the left frontal lobe. Similar, but less pronounced, areas also seen in the right inferi or frontal lobe, compatible with areas of bilateral inferior frontal lobe areas of brain trauma with secondary hemorrhage, worse on the left than on the right. The posterior fossa is unremarkable. There also does appear to be some area of subtle brain contusion along the anteromedial aspect of the left temporal lobe. This area is also compatible with post-traumatic and possible hemorrhagic changes. IMPRESSION: Bilateral inferior frontal lobe, worse on the left than on the right, as well as medial left temporal lobe areas of signal abnormalities compatible with brain contusion and areas of hemorrhage. Encephal omalacia changes are present in these areas. POS: SCARLETT
[2017-04-10] MEDS ORDERED: Gadobenate Dimeglumine 529 MG/1 ML (20ML VIAL) ONE (17:34)
== END 2017-04-10 14:40 ==
LOC: SDC/OP 10:16
PROVIDERS: ATTEND Neurological Surgery
DX: S06.6X9A Traumatic subarachnoid hemorrhage with loss of consciousness of unspecified duration, initial encounter (principal)
CPT/HCPCS: 70553; A9579

== ENCOUNTER 2017-05-28 09:46 | Emergency (ER) | payer MEDICARE, MEDICAID ==
[2017-05-28 10:24] LABS: #Eosinphils 0.1 thou/uL (0.0-0.7); #Lymphocytes 2.7 thou/uL (1.20-3.40); #Monocytes 0.6 thou/uL (0.11-0.59); #Neutrophils 4.9 thou/uL (1.40-6.50); %Basophils 0.3 % (0.0-1.0); %Eosinophils 1.6 % (0.0-10.0); %Lymphocytes 32.3 % (21.0-51.0); %Monocytes 7.2 % (0.0-10.0); %Neutrophils 58.6 % (42.0-75.0); Hemoglobin 15.1 g/dL (14.0-18.0); Mean Corpuscular HGB CONC 33.8 g/dL (32.0-36.0); Mean Corpuscular Volume 91.6 fl (80.0-94.0); Platelet Count 245 thou/uL (130-400); RBC Distribution Width 12.7 % (11.5-14.5); Red Blood Cell (RBC) Count 4.87 mill/uL (4.70-6.10); White Blood Cell (WBC) Count 8.3 thou/uL (4.8-10.8)
[2017-05-28 10:45] LABS: ALT (SGPT) 16 U/L (8-55); AST (SGOT) 13 U/L (5-34); Acetaminophen Less than 6.0 mcg/mL (10.0-30.0); Albumin 4.3 g/dL (3.5-5.0); Alcohol Less than 10 mg/dL (Less than 10); Alkaline Phosphatase 92 U/L (40-150); Anion Gap 13 mmol/L (10-20); BUN (Urea Nitrogen) 15 mg/dL (8.9-20.6); Bilirubin, Total 0.4 mg/dL (0.2-1.2); Calc. Creatinine Clearance 0 mL/min (70-130); Calcium 9.3 mg/dL (7.8-10.44); Carbon Dioxide 25 mmol/L (22-29); Chloride 106 mmol/L (98-107); Estimated GFR-MDRD Greater than 90; Glucose 92 mg/dL (70-105); Protein, Total 7.3 g/dL (6.0-8.3); Salicylate Less than 8.0 mg/dL (15.0-30.0); Sodium 140 mmol/L (136-145)
[2017-05-28 11:31] LABS: Bilirubin Negative (Negative); Blood, Urine Negative (Negative); Clarity CLEAR (Clear); Glucose, Urine (Dipstick) Negative (Negative); Leukocyte Negative (Negative); Nitrite Negative (Negative); Protein, Urine (Dipstick) Negative (Neg-Trace); Specific Gravity, Urine 1.021 (1.002-1.036); Urobilinogen 0.2 mg/dL (0.2-1.0); pH, Urine 6.5 (5.0-9.0)
[2017-05-28 11:35] LABS: Amphetamine Not Detected (NotDetected); Barbiturates Screen Not Detected (NotDetected); Benzodiazepine Screen Not Detected (NotDetected); Cocaine Metabolite Screen Not Detected (NotDetected); Medtox Control Line Valid? VALID (VALID); Medtox Reader # READER 1; Methadone Not Detected (NotDetected); Methamphetamine Not Detected (NotDetected); Opiate Screen Not Detected (NotDetected); Oxycodone Screen Not Detected (NotDetected); Phencyclidine (PCP) Not Detected (NotDetected); THC/Cannabinoid Screen Not Detected (NotDetected); Tricyclic Screen Not Detected (NotDetected)
--- NOTE | 2017-05-30 17:35 | EKG ---
Test Reason : Blood Pressure : / mmHG Vent. Rate : 067 BPM Atrial Rate : 067 BPM P-R Int : 170 ms QRS Dur : 104 ms QT Int : 374 ms P-R-T Axes : 028 039 013 degrees QTc Int : 395 ms Normal sinus rhythm Normal ECG Confirmed by BARB VOSS D.O. ([id number]), editor at large RIKI LEWIS ([id number]) on 05/30/2017 5:34:47 PM Referred By: Confirmed By:BARB VOSS D.O.
== END 2017-05-28 15:18 | disposition home or self-care (01) ==
LOC: ERS 09:46
DX: T42.6X1A Poisoning by other antiepileptic and sedative-hypnotic drugs, accidental (unintentional), initial encounter (principal); G40.909 Epilepsy, unspecified, not intractable, without status epilepticus
CPT/HCPCS: 36415; 80053; 80177; 80306; 80307; 81003; 85025; 93005; 94760; 96360; 96361

== ENCOUNTER 2017-06-01 12:21 | Emergency (ER) | payer MEDICARE, MEDICAID ==
[2017-06-01] MEDS ORDERED: Ondansetron HCl/PF 4 MG/2 ML Vial ONE (12:58)
[2017-06-01] MEDS ORDERED: levETIRAcetam In NaCl (Iso-Os) 1,000 MG in Premix Bag 1 BAG IVPB ONE ×2 (13:30)
[2017-06-01 13:31] LABS: #Basophils 0.1 thou/uL (0.0-0.2); #Eosinphils 0.1 thou/uL (0.0-0.7); #Lymphocytes 5.4 thou/uL (1.20-3.40); #Monocytes 0.8 thou/uL (0.11-0.59); #Neutrophils 11.8 thou/uL (1.40-6.50); %Basophils 0.5 % (0.0-1.0); %Eosinophils 0.5 % (0.0-10.0); %Lymphocytes 29.5 % (21.0-51.0); %Monocytes 4.4 % (0.0-10.0); %Neutrophils 65.1 % (42.0-75.0); Hemoglobin 17.2 g/dL (14.0-18.0); Mean Corpuscular HGB CONC 33.5 g/dL (32.0-36.0); Mean Corpuscular Hemoglobin 31.4 pg (27.0-31.0); Mean Corpuscular Volume 93.9 fl (80.0-94.0); Mean Platelet Volume 8.5 fL (7.4-10.4); Platelet Count 306 thou/uL (130-400); RBC Distribution Width 13.1 % (11.5-14.5); Red Blood Cell (RBC) Count 5.47 mill/uL (4.70-6.10); White Blood Cell (WBC) Count 18.1 thou/uL (4.8-10.8)
[2017-06-01 14:01] LABS: ALT (SGPT) 19 U/L (8-55); AST (SGOT) 17 U/L (5-34); Albumin 5.2 g/dL (3.5-5.0); Alkaline Phosphatase 115 U/L (40-150); Anion Gap 24 mmol/L (10-20); BUN (Urea Nitrogen) 10 mg/dL (8.9-20.6); Bilirubin, Total 0.7 mg/dL (0.2-1.2); CK (CPK) 441 U/L (30-200); Calc. Creatinine Clearance 0 mL/min (70-130); Calcium 9.8 mg/dL (7.8-10.44); Carbon Dioxide 13 mmol/L (22-29); Chloride 104 mmol/L (98-107); Estimated GFR-MDRD Greater than 90; Globulin 3.7 g/dL (2.4-3.5); Glucose 112 mg/dL (70-105); Potassium 3.4 mmol/L (3.5-5.1); Protein, Total 8.9 g/dL (6.0-8.3); Sodium 138 mmol/L (136-145)
--- NOTE | 2017-06-01 14:27 | CT ---
CT CERVICAL SPINE WITH CORONAL AND SAGITTAL REFORMATIONS: HISTORY: A 21-year-old male with seizure, injury, and neck pain. FINDINGS: No acute fracture or subluxation is identified. POS: OFF
--- NOTE | 2017-06-01 14:30 | RAD ---
PA AND LATERAL VIEWS CHEST: HISTORY: Seizure. Injury. FINDINGS: The heart size is normal. No confluent areas of consolidation, pneumothoraces, or pleural effusions are seen. No acute osseous abnormalities are identified. IMPRESSION: No radiographic evidence of acute cardiopulmonary process. POS: OFF
--- NOTE | 2017-06-01 15:06 | CT ---
CT BRAIN WITHOUT IV CONTRAST: HISTORY: A 21-year-old male with a history of seizure and injury. COMPARISON: 03/18/2017 FINDINGS: No focal mass or midline shift. No acute hemorrhage. There are some subtle low attenuation changes in the floor of the anterior cranial fossa, to the left of midline, probably representing some mild, old encephalomalacia at the site of the previous injury. A linear, frontal skull fracture is again d emonstrated but less prominent than on the prior exam of 03/18/2017. The previously noted linear lef t occipital bone fracture is less well demonstrated on today's study. IMPRESSION: No new mass or hemorrhage. Old frontal and occipital linear fractures. Subtle low attenuation walden es in the floor of the left anterior cranial fossa, probably the result of previous injury. No signi ficant new process. POS: SHAE
== END 2017-06-01 17:52 | disposition home or self-care (01) ==
LOC: ERS 12:21
DX: R56.9 Unspecified convulsions (principal)
CPT/HCPCS: 70450; 71046; 72125; 80053; 82550; 84146; 85025; 94760; 96361; 96365; 96375; J1953; J2405

== ENCOUNTER 2018-06-25 15:04 | Inpatient (IN) | payer MEDICARE, MEDICAID ==
[2018-06-25 16:16] LABS: Bilirubin Negative (Negative); Blood, Urine Negative (Negative); Glucose, Urine (Dipstick) Negative (Negative); Leukocyte Negative (Negative); Nitrite Negative (Negative); Protein, Urine (Dipstick) Trace mg/dL (Neg-Trace); Urobilinogen 0.2 mg/dL (0.2-1.0); pH, Urine 6.5 (5.0-9.0)
[2018-06-25 16:23] LABS: #Eosinphils 0.1 thou/uL (0.0-0.7); #Lymphocytes 2.4 thou/uL (1.20-3.40); #Monocytes 0.5 thou/uL (0.11-0.59); #Neutrophils 7.9 thou/uL (1.40-6.50); %Basophils 0.3 % (0.0-1.0); %Eosinophils 0.6 % (0.0-10.0); %Lymphocytes 21.9 % (21.0-51.0); %Monocytes 4.6 % (0.0-10.0); %Neutrophils 72.6 % (42.0-75.0); Hemoglobin 18.3 g/dL (14.0-18.0); Mean Corpuscular HGB CONC 33.6 g/dL (32.0-36.0); Mean Corpuscular Hemoglobin 30.6 pg (27.0-31.0); Mean Platelet Volume 8.5 fL (7.4-10.4); Platelet Count 295 thou/uL (130-400); RBC Distribution Width 12.5 % (11.5-14.5); Red Blood Cell (RBC) Count 5.98 mill/uL (4.70-6.10); White Blood Cell (WBC) Count 10.9 thou/uL (4.8-10.8)
[2018-06-25 16:23] LABS: Clarity CLEAR (Clear); Specific Gravity, Urine 1.007 (1.002-1.036)
[2018-06-25 16:27] LABS: Amphetamine Not Detected (NotDetected); Barbiturates Screen Not Detected (NotDetected); Benzodiazepine Screen Not Detected (NotDetected); Cocaine Metabolite Screen Not Detected (NotDetected); Medtox Control Line Valid? VALID (VALID); Medtox Reader # READER 4; Methadone Not Detected (NotDetected); Methamphetamine Not Detected (NotDetected); Opiate Screen Not Detected (NotDetected); Oxycodone Screen Not Detected (NotDetected); Phencyclidine (PCP) Not Detected (NotDetected); THC/Cannabinoid Screen Not Detected (NotDetected); Tricyclic Screen Not Detected (NotDetected)
[2018-06-25 16:38] LABS: ALT (SGPT) 65 U/L (8-55); AST (SGOT) 30 U/L (5-34); Acetaminophen Less than 6.0 mcg/mL (10.0-30.0); Alcohol Less than 10 mg/dL (Less than 10); Alkaline Phosphatase 113 U/L (40-150); Anion Gap 14 mmol/L (10-20); BUN (Urea Nitrogen) 5 mg/dL (8.9-20.6); Bilirubin, Total 0.6 mg/dL (0.2-1.2); CK (CPK) 153 U/L (30-200); Calc. Creatinine Clearance 0 mL/min (70-130); Calcium 10.1 mg/dL (7.8-10.44); Carbon Dioxide 23 mmol/L (22-29); Chloride 105 mmol/L (98-107); Estimated GFR-MDRD Greater than 90; Globulin 3.7 g/dL (2.4-3.5); Glucose 93 mg/dL (70-105); Potassium 3.7 mmol/L (3.5-5.1); Protein, Total 8.7 g/dL (6.0-8.3); Salicylate Less than 8.0 mg/dL (15.0-30.0); Sodium 138 mmol/L (136-145)
[2018-06-25 19:33] VITALS: BMI 32.5
[2018-06-25] MEDS ORDERED: Dextrose 5% in Water 1,000 ML IV PRN (23:02)
[2018-06-25] MEDS ORDERED: Dextrose 50% Abboject 50 ML SYRINGE SLOW IVP PRN (23:02)
[2018-06-25] MEDS ORDERED: Lorazepam 2 MG/ML VIAL SLOW IVP PRN (23:06)
[2018-06-25] MEDS ORDERED: Dextrose 5% in Water 1,000 ML IV SCH (23:15)
[2018-06-25] MEDS ORDERED: traZODone HCl 50 MG TAB PO SCH (23:22)
[2018-06-25] MEDS ORDERED: Mirtazapine 30 MG TAB PO SCH (23:30)
[2018-06-25] MEDS: Dextrose 5% in Water 1,000 ML IV SCH (23:33)
[2018-06-25] MEDS ORDERED: Acetaminophen 325 MG TAB PO PRN (23:47)
[2018-06-25] MEDS ORDERED: Acetaminophen 650 MG Suppository PR PRN (23:47)
[2018-06-25] MEDS ORDERED: Ondansetron ODT 4 MG TAB PO PRN (23:47)
--- NOTE | 2018-06-26 04:22 | HP ---
CHIEF COMPLAINT: Overdose of glipizide 5 mg x80 capsules. HISTORY OF PRESENT ILLNESS AND REVIEW OF SYSTEMS: Mr. Rizo is a 22-year- old man with a history of developmental delays and seizures following a previous brain injury. The patient is not communicative at baseline. According to his mother , he has overdosed on her glipizide tablets, which she keeps in the bathroom. She states she had a nearly full bottle and noticed she was missing approximately 80 tablets. She states she did not witness this, but when she asked where the pills were, he pointed to his own stomach. He has had an overdose in the past of his own medication (Keppra). At that time, he underwent a gastric lavage. Laboratory studies were done in the ED, which showed an initial glucose of 109. Poison Control was contacted, and observation was advised for at least 24 hours with frequent glucose monitoring and monitoring for any seizures. The patient did receive his nighttime dose of Keppra as scheduled. He has not had any nausea or vomiting. Has not had any complaints of abdominal pain. Has not had any difficulty with his breathing or complaints of chest pain. His vitals have been normal. No seizure-like activity. He appears well and himself as per his mother, who has been at bedside since bringing him in. PAST MEDICAL HISTORY: 1. History of mental retardation. 2. 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 PAST SURGICAL HISTORY: None. SOCIAL HISTORY: The patient lives with his mother. No alcohol or tobacco use. No illicit drug use. ALLERGIES: NO KNOWN DRUG ALLERGIES. CURRENT MEDICATIONS: 1. Keppra 500 mg two times a day. 2. Trazodone 50 mg p.o. at bedtime. 3. Mirtazapine 15 mg p.o. once daily. PHYSICAL EXAMINATION: GENERAL: The patient appears well developed, well nourished, and in no acute distress. VITAL SIGNS: Temperature 98.9, pulse 95, respirations 18, O2 saturation 95% on room air, and blood pressure 138/85. HEENT: Normocephalic and atraumatic. Pupils are equal, round, and reactive to light. Sclerae are anicteric. Oropharynx is clear. NECK: Supple without lymphadenopathy. Full range of motion. LUNGS: Clear to auscultation. CARDIAC: Regular rate and rhythm. ABDOMEN: Soft, nontender, nondistended. Normoactive bowel sounds present. EXTREMITIES: No swelling or edema. NEUROLOGIC: The patient is alert, non-communicative. SKIN: Without rash or jaundice. LABORATORY DATA: White blood count 10.9, hemoglobin 18.3, hematocrit 54.4, and platelets 295. Sodium 138, potassium 3.7, BUN 5, creatinine 0.87, GFR greater than 90, and glucose 126. Total bilirubin 0.6, AST 30, ALT 65, and CK 153. TSH 0.4227. Urinalysis unremarkable. Toxicology positive for salicylates and acetaminophen. IMAGING DATA: None. IMPRESSION AND PLAN: Mr. Rizo is a 22-year-old young man with mental retardation and a history of seizures following a previous brain injury, who has come in with intentional overdose of glipizide 5 mg x80 tablets. The patient is being admitted for observation with frequent glucose monitoring every 2 hours and monitoring for any seizures. He has been well since admission. We have again requested glucose monitoring every 2 hours. He has been started on D5W at 75 mL/hour. This has been bumped up to 100 mL/hour as repeat glucose taken at the time of assessment is lower at 76. I have confirmed with his mother that he did not miss his nighttime dose of Keppra as she has brought it in with her. I instructed to avoid giving any further home medications as I have reconciled his meds and he will be given all meds by nurses while he is here. The patient is without any complaints at this present time. He would benefit from [facility] evaluation, given hx of intentional OD. The patient's case was discussed with Dr. Lopez, who agrees upon the care as described above. Job ID: [id number] [facility]
[2018-06-26 07:24] LABS: #Basophils 0.1 thou/uL (0.0-0.2); #Eosinphils 0.2 thou/uL (0.0-0.7); #Lymphocytes 5.1 thou/uL (1.20-3.40); #Monocytes 0.9 thou/uL (0.11-0.59); #Neutrophils 5.3 thou/uL (1.40-6.50); %Basophils 0.9 % (0.0-1.0); %Eosinophils 1.5 % (0.0-10.0); %Lymphocytes 43.6 % (21.0-51.0); %Monocytes 8.1 % (0.0-10.0); Hemoglobin 17.5 g/dL (14.0-18.0); Mean Corpuscular HGB CONC 33.9 g/dL (32.0-36.0); Mean Corpuscular Hemoglobin 30.8 pg (27.0-31.0); Mean Corpuscular Volume 90.7 fL (78.0-98.0); Mean Platelet Volume 8.5 fL (7.4-10.4); Platelet Count 288 thou/uL (130-400); RBC Distribution Width 12.6 % (11.5-14.5); Red Blood Cell (RBC) Count 5.68 mill/uL (4.70-6.10); White Blood Cell (WBC) Count 11.6 thou/uL (4.8-10.8)
[2018-06-26 07:42] LABS: Anion Gap 14 mmol/L (10-20); BUN (Urea Nitrogen) 5 mg/dL (8.9-20.6); Calc. Creatinine Clearance 219 mL/min (70-130); Calcium 9.5 mg/dL (7.8-10.44); Carbon Dioxide 21 mmol/L (22-29); Chloride 108 mmol/L (98-107); Estimated GFR-MDRD Greater than 90; Glucose 69 mg/dL (70-105); Potassium 3.6 mmol/L (3.5-5.1); Sodium 139 mmol/L (136-145)
[2018-06-26] MEDS: levETIRAcetam 500 MG TAB PO SCH ×2 (08:38→20:28)
[2018-06-26] MEDS: Famotidine 20 MG TAB PO SCH ×2 (08:38→20:28)
[2018-06-26] MEDS: Aripiprazole 10 MG TAB PO SCH (08:55)
[2018-06-26] MEDS: Dextrose 5% in Water 1,000 ML IV SCH ×2 (10:03→21:58)
--- NOTE | 2018-06-26 12:27 | PRG ---
DATE OF SERVICE: 06/26/2018 SUBJECTIVE: The patient is seen and examined at bedside. He is not verbal. He just says yes. Apparently, it is his baseline. OBJECTIVE: VITAL SIGNS: Blood pressure is 130/84, pulse is 101, temperature is 98.6, respiratory rate is 19, O2 saturation 95% on room air. HEENT: His head is atraumatic and normocephalic. Eyes are PERRLA. Sclerae are nonicteric. Conjunctivae pinkish. Oral mucosa is moist. NECK: Supple. No lymphadenopathy. LUNGS: Clear. HEART: S1 and S2 normal. No S3. No S4. No any murmur. ABDOMEN: Soft, nontender, nondistended. EXTREMITIES: No clubbing, cyanosis, or edema. NEUROLOGIC: He follows my simple commands. He is able to move his all four extremities spontaneously. LABORATORY DATA: Labs showed white count of 11.6, hemoglobin 17.5, hematocrit 51.5, platelet count 288,000. Sodium of 139, potassium 3.6, chloride 108, CO2 of 21, BUN 5, creatinine 0.78, glycemia is ranging from 69 to 138. IMPRESSION: Questionable overdose of glipizide 5 mg tablets x80 count. The patient is watched with Accu-Chek every 2 hours. He is on D5 water at 100 mL/h. His glycemia is in good range at this point. I am going to continue the same approach for now until we have final recovery. I do not believe he took so many glipizide tablets, but he could take probably some of it, what it was suspected. We will continue the rest of his medications and continue regular diet. Job ID: [id number]
[2018-06-26] MEDS: Mirtazapine 30 MG TAB PO SCH (20:28)
[2018-06-26] MEDS: traZODone HCl 50 MG TAB PO SCH (20:28)
[2018-06-27] MEDS: Dextrose 5% in Water 1,000 ML IV SCH ×3 (05:40→11:03)
[2018-06-27] MEDS: Aripiprazole 10 MG TAB PO SCH (08:26)
[2018-06-27] MEDS: levETIRAcetam 500 MG TAB PO SCH ×2 (08:26→20:12)
[2018-06-27] MEDS: Famotidine 20 MG TAB PO SCH ×2 (08:26→20:13)
--- NOTE | 2018-06-27 10:47 | PRG ---
DATE OF SERVICE: 06/27/2018 SUBJECTIVE: The patient was seen and examined at the bedside. There were no any unexpected events overnight. OBJECTIVE: VITAL SIGNS: Blood pressure is 134/88, pulse is 95, temperature 97.4, respirations 18, and O2 saturation 95% on room air. HEENT: Head is atraumatic and normocephalic. Eyes are PERRLA. Sclerae nonicteric. Oral mucosa is moist. NECK: Supple. LUNGS: Clear. HEART: S1, S2 normal. ABDOMEN: Soft, nontender, mildly distended. EXTREMITIES: No clubbing, cyanosis, or edema. NEUROLOGIC: He tries to follow my commands. He is not verbal. He always says yes for any questions I have. He moves his all 4 extremities. LABORATORY DATA: Glycemia is ranging from 100 to 183. IMPRESSION: Overdose on glipizide. The patient is receiving D5 water at 100 mL/h. The lowest Accu-Chek was 100. PLAN: Plan is to cut back on his fluids to 50 mL/h and see how his glycemia behaves. We start checking his glycemia every 4 hours after three consecutive Accu-Cheks. He should be able to go home in the next probably 24 hours. Job ID: [id number]
[2018-06-27] MEDS: Mirtazapine 30 MG TAB PO SCH (20:12)
[2018-06-27] MEDS: traZODone HCl 50 MG TAB PO SCH (20:13)
[2018-06-28] MEDS: Dextrose 5% in Water 1,000 ML IV SCH (01:21)
[2018-06-28] MEDS: Aripiprazole 10 MG TAB PO SCH (08:53)
[2018-06-28] MEDS: Famotidine 20 MG TAB PO SCH (08:54)
[2018-06-28] MEDS: levETIRAcetam 500 MG TAB PO SCH (08:55)
[2018-06-28 15:40] VITALS: BP 126/86; TEMP 98.3
--- NOTE | 2018-06-29 00:11 | DIS ---
DATE OF ADMISSION: 06/25/2018 DATE OF DISCHARGE: 06/28/2018 FINAL DIAGNOSES: 1. Intentional overdose of glipizide 5 mg x80 tablets. 2. History of mental retardation. 3. 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 HOSPITAL COURSE: The patient is a 22-year-old male with history of developmental delays and seizures following a previous brain injury. The patient was not communicative at baseline according to his mother. He had overdosed on her glipizide tablet, which she keeps in the bathroom. She stated that she had nearly a full bottle and noticed she was missing approximately 80 tablets. She did not witness the event but when she asked where the pills were, he pointed to his own stomach. He has had an overdose in the past of his own medications Keppra. While in the emergency room, his glucose was 109. Poison Control was called and observation was advised for at least 24 hours with frequent glucose monitoring and monitoring for any seizures. The patient did not have any nausea or vomiting. He did not have any complaints of abdominal pain while in the emergency room. There was no difficulty of breathing or complaints of chest pain. His vitals were normal. No seizure-like activity occurred. He appeared well. He was evaluated in the emergency room. Hemoglobin was 18.3, white count of 10.9, hematocrit 54.4, and platelet count 295,000. Normal chemistry. Glucose 126. Urinalysis was unremarkable. Toxicology was positive for salicylates and acetaminophen. He was admitted to the hospital for observation. His glucose was monitored every 2 hours and he was monitored for any seizures. He was placed on D5 water at 100 mL/h and then gradually the rate was decreased and stopped. He was able to maintain his glycemia in good range. The lowest his Accu-Cheks went down to was 69. There was no unexpected events during this hospitalization. He seems to be doing fine. His blood pressure is 121/86, pulse is 101, temperature is 97.8, respirations 18, and O2 saturation is 97% on room air. PHYSICAL EXAMINATION: Did not reveal any abnormalities today. DIET: He is discharged home with recommendation to stay on heart healthy diet. ACTIVITIES: As tolerated. MEDICATIONS: 1. Trazodone 50-100 mg at bedtime. 2. Mirtazapine 30 mg at bedtime. 3. Aripiprazole 5 mg once a day. 4. Keppra 500 mg twice a day. 5. Tylenol regular strength 650 q.4 hours p.r.n. as needed. FOLLOWUP: The patient is discharged home with recommendation to followup with his primary care physician in 1 week. TIME SPENT: Discharge time is less than 30 minutes. Job ID: [id number]
== END 2018-06-28 15:57 | disposition home or self-care (01) | DRG 918 ==
LOC: ERS 15:04 → T4-B 18:17
PROVIDERS: ADMIT Internal Medicine; ATTEND Internal Medicine
DX: T38.3X2A Poisoning by insulin and oral hypoglycemic [antidiabetic] drugs, intentional self-harm, initial encounter (principal); F79 Unspecified intellectual disabilities; R62.50 Unspecified lack of expected normal physiological development in childhood; G40.909 Epilepsy, unspecified, not intractable, without status epilepticus; Z79.899 Other long term (current) drug therapy
CPT/HCPCS: 36415; 36416; 80048; 80053; 80306; 80307; 81003; 82550; 84443; 85025; 93005